=== PATIENT | male | born 1975 | race Caucasian/White ===

== ENCOUNTER 2024-12-22 03:28 | Emergency (ER) | payer BC, SELFPAY ==
[2024-12-22 03:32] VITALS: BP 144/86
--- NOTE | 2024-12-22 03:50 | EDRN ---
Orders placed in triage, informed nothing was collected.
[2024-12-22 03:53] VITALS: BMI 35.3
--- NOTE | 2024-12-22 03:54 | EDRN ---
Pt having 'extreme' pain R middle abdomen, was painful enough for pt to wake his to come here. Pt thought he had to go to the bathroom or had gas pains. Pain was persistent for 40 minutes and now is not 'as harsh, still painful.' Last BM
1999 and was normal. Pt passed gas earlier last night, not currently. Pt can feel pain in R back. Nausea, no vomiting. No fever/chills/cough, cp, sob, urinary symptoms, diarrhea/constipation. Pain waxes and wanes. Pt did not take anything for
the pain.
--- NOTE | 2024-12-22 04:05 | EDRN ---
Pt says pain woke him around [id number].
[2024-12-22 04:10] LABS: % Basophils 0.4 % (0-2); % Eosinophils 2.5 % (0-6); % Immature Granulocytes 0.4 % (0-0.5); % Lymphocytes 28.4 % (20.5-51.1); % Monocytes 8.7 % (1.7-9.3); % Neutrophils 59.6 % (42.2-75.2); Absolute Eosinophils 0.1 10^3/uL (0-0.7); Absolute Lymphocytes 1.5 10^3/uL (1.2-3.4); Absolute Monocytes 0.5 10^3/uL (0.1-0.6); Absolute Neutrophils 3.1 10^3/uL (1.4-6.5); Hematocrit 45.5 % (39.0-52.0); Hemoglobin 16.4 g/dL (13.0-18.0); Mean Corpuscular Hgb 30.3 pg (27.0-31.0); Mean Corpuscular Volume 84.1 fL (80.0-94.0); Mean Platelet Volume 8.4 fL (7.4-10.4); Nucleated Red Blood Cells % 0 % (-); Platelet Count 216 10^3/uL (130-400); Red Blood Cell Count 5.41 10^6/uL (4.70-6.10); White Blood Cell Count 5.2 10^3/uL (4.8-10.8)
[2024-12-22 04:11] VITALS: BP 128/83
[2024-12-22 04:24] LABS: Urine Albumin 2+ (Neg - Trace); Urine Bilirubin Negative (Negative); Urine Character Slightly Cloudy (Clear); Urine Color Yellow; Urine Glucose Negative (Negative); Urine Ketone Negative (Negative); Urine Leukocyte Negative (Negative); Urine Nitrite Negative (Negative); Urine Occult Blood 4+ (Negative); Urine Specific Gravity 1.025 (<1.030); Urine Urobilinogen Negative (Neg - 1+)
[2024-12-22 04:29] LABS: ALT (SGPT) 54 U/L (0-50); AST (SGOT) 33 U/L (17-59); Albumin 4.1 g/dl (3.5-5.0); Alkaline Phosphatase 76 U/L (38-126); Blood Urea Nitrogen 18 mg/dl (9-20); Calcium 9.1 mg/dl (8.4-10.2); Carbon Dioxide 25 mmol/L (22-30); Chloride 107 mmol/L (98-107); Estimated Creatinine Clearance 103 ml/min; Glucose 104 mg/dl (70-99); Lipase 91 U/L (23-300); Potassium 3.6 mmol/L (3.5-5.1); Sodium 140 mmol/L (135-145); Total Protein 6.7 g/dl (6.3-8.2); eGFR > 60.00
[2024-12-22 04:51] LABS: Urine Squamous Cell 0-2 /LPF (Few)
[2024-12-22 04:52] LABS: Urine Bacteria Few (Negative); Urine Red Blood Cell >100 /HPF (0-2); Urine White Cell None Seen /HPF (0-5)
[2024-12-22 04:53] LABS: Urine Mucus Few
[2024-12-22 05:30] VITALS: BP 108/72
--- NOTE | 2024-12-22 05:30 | ED.GENMED ---
History of Present Illness
General
Chief Complaint: Abdominal Pain
Source: patient
Exam Limitations: none
Time Seen by Provider: 12/22/24 04:37
History of Present Illness
History of Present Illness:
This a 49-year-old male presents with pain in the right abdomen rating toward the back. Started around 2:30 AM. States he thought he had a bath but that did not help. Pain was more severe and is now subsided a bit. Patient states that he was
nauseous. Pain was waxing and waning. His pain is mild at this point. No vomiting. No fevers. No injury. No testicular pain. No dysuria. No hematuria.
Past History
Past History
ED Past Medical History: Other (Ulcerative colitis, psoriasis)
ED Past Surgical History: None
Social History
Tobacco: Non-smoker
Alcohol: None
Personal:
Living: with family
Phy Exam
Physical Exam
Physical Exam:
CONSTITUTIONAL Patient alert and oriented to person, place and time. Well-appearing. Vital signs reviewed.
HEAD atraumatic, normocephalic.
EYES eyelids normal to inspection, Extraocular muscles intact, Conjunctiva normal, Sclera normal.
NECK normal range of motion, Trachea midline, no jugular venous distention.
RESPIRATORY CHEST No respiratory distress noted, Chest expansion equal, Bilateral breath sounds clear.
CARDIOVASCULAR regular rate and rhythm, Heart sounds normal.
ABDOMEN abdomen nontender, Bowel sounds normal. No distention. No CVA tenderness
BACK normal inspection, no obvious deformities
UPPER EXTREMITY range of motion normal, Motor strength normal, no cyanosis, no edema.
LOWER EXTREMITY range of motion normal, Motor strength normal, no cyanosis, no edema.
NEURO Speech normal, No focal motor deficits, [place] coma scale 15, Memory normal, Cranial Nerves intact to screening exam.
SKIN skin warm, dry, and normal in color.
Course
Orders/Labs/Results
Orders:
Orders
12/22/24 03:58
CBC/With Diff [Complete Blood Count/With Diff] Urgent
Comprehensive Metabolic Panel Urgent
Lipase Urgent
12/22/24 04:06
Urinalysis Urgent
Date Specimen was Collected: 12/22/24
Time Specimen was Collected: 03:35
Urine Microscopic Urgent
Date Specimen was Collected: 12/22/24
Time Specimen was Collected: 03:35
12/22/24 04:29
CT Abd/pel Without Iv Or Oral Urgent
Comment:
Reason For Exam: R flank pain
12/22/24 05:26
Ketorolac [Toradol] 15 mg IV NOW STA
Abnormal Lab Results
12/22/24 12/22/24
03:58 04:06
Glucose 104 H mg/dl
(70-99)
ALT 54 H U/L
(0-50)
Urine Occult Blood 4+ A
(Negative)
Urine RBC >100 A /HPF
(0-2)
Urine Bacteria Few A
(Negative)
Urine Albumin 2+ A
(Neg - Trace)
12/22/24 03:58
12/22/24 03:58
Vital Signs
Initial and Last Documented VS:
Initial Vital Signs
Temp Pulse Resp BP Pulse Ox
98.3 F 84 20 144/86 98
12/22/24 03:32 12/22/24 03:32 12/22/24 03:32 12/22/24 03:32 12/22/24 03:32
Last Documented Vital Signs
Temp Pulse Resp BP Pulse Ox
98.3 F 76 16 128/83 94
12/22/24 03:32 12/22/24 04:11 12/22/24 04:11 12/22/24 04:11 12/22/24 04:11
MDM/Problems Addressed
MDM/Problems Addressed:
Acute ureterolithiasis
*Radiology
Radiology exam reviewed: preliminary read by ED provider (Right-sided ureterolithiasis)
*Pulse Oximetry
Patient hypoxic: no
*Size Painter Interpretation
Rate: normal
Interpretation: normal
Rhythm: sinus
*Critical Care Note
Total Time (30-74mins, 75-104mins- exclusive of procedures): Not Applicable
Data Reviewed
Source: patient
Prescriptions/Medications Considered But Not Given:
Considered antibiotics but no leukocytosis, urinalysis negative for infection
Patient Management
Escalation/DeEscalation of care consider admission/obs:
Pain control. Patient appears quite well. Stable for outpatient management. Outpatient follow-up with urology
ED Attending Note
-
Portions of this chart may have been created with voice recognition software.� Occasional wrong word or��sound alike� substitutions may have occurred due to the inherent limitations of voice recognition software.
Discharge Plan
Departure
Patient Disposition: Home (Routine Discharge)
Date of Disposition: 12/22/24
Time of Disposition: 05:32
Patient with high blood pressure during this ER visit?: No
Discharge Problem:
Ureterolithiasis
Instructions: Kidney Stones (DC), Narcotic Pain Medication
Prescriptions:
New
hydrocodone-acetaminophen 5-325 mg tablet
2 tab PO Q6H PRN (Reason: Pain) Qty: 20 0RF
tamsulosin [Flomax] 0.4 mg capsule
0.4 mg PO HS Qty: 20 0RF
Referrals:
Kyle Tamez MD [Active] -
UNKNOWN - PT DOES,NOT KNOW [Family Provider] -
Activity Restrictions/Additional Instructions:
Please see urology in follow-up in the next 3 to 5 days. Return immediately for worsening symptoms, intractable vomiting, intractable pain, fevers or any other concerns. Please drink plenty of fluids and strain your urine as discussed.
Interventions
Interventions:
*Risk Screen - Suicide Last Done: 12/22/24 03:30
*General Assessment Last Done: 12/22/24 03:53
*Neglect/Abuse Screening Last Done: 12/22/24 03:30
*ED- Fall Risk Assessment Last Done: 12/22/24 05:30
*ED COVID-19 Vaccine History Last Done: 12/22/24 03:53
FV-Pztkzd-Tmwlocpxbr Assessment Last Done: 12/22/24 04:09
ED-Male Genitourinary Assessment Last Done: 12/22/24 04:09
Discharge Date and Time
Print Language: SLOVENIAN
[2024-12-22] MEDS: TORADOL 15 MG IV (05:31)
== END 2024-12-22 06:00 | disposition home or self-care (01) ==
LOC: EMR 03:28
PROVIDERS: EMERGENCY PHYSICIAN Emergency Medicine
DX: N20.1 Calculus of ureter (principal); R11.0 Nausea; K51.90 Ulcerative colitis, unspecified, without complications; L40.9 Psoriasis, unspecified
CPT/HCPCS: 99284; 96374; 74176; 80053; 81003; 81015; 83690; 85025

== ENCOUNTER 2024-12-31 14:59 | Emergency (ER) | payer BC, SELFPAY ==
[2024-12-31 14:59] VITALS: BMI 35.2
[2024-12-31 15:02] VITALS: BP 149/98
--- NOTE | 2024-12-31 15:39 | ED.GENMED ---
History of Present Illness
General
Chief Complaint: Flank Pain
Source: patient and records (ED visit 12/22/24 for kidney stone)
Exam Limitations: none
Time Seen by Provider: 12/31/24 15:29
Nursing documentation reviewed up to this point in time: agreed with
History of Present Illness
History of Present Illness:
49-year-old male presents emergency room complaining of right flank pain that first began on 12/22/2024, when he was advised in the emergency department and had a 4 mm stone at the right UPJ. He was instructed to follow-up with Dr. Tamez. When
his pain came back today, he called Dr. Tamez's office and was directed to the emergency department.
Past History
Past History
ED Past Medical History: Other (Ulcerative colitis, psoriasis) and Other (Kidney stone)
ED Past Surgical History: None
Social History
Tobacco: Non-smoker
Alcohol: None
Personal:
Living: with family
Review of Systems
Review of Systems
Allergies reviewed?: Yes
All Other Systems: Not applicable
Constitutional: Reports no symptoms
EENT: Reports no symptoms
Respiratory: Reports no symptoms
Cardiac: Reports no symptoms
ABD/GI: Reports no symptoms
: Reports flank pain
Musculoskeletal: Reports no symptoms
Skin: Reports no symptoms
Neurological: Reports no symptoms
Endocrine: Reports no symptoms
Hematologic/Lymphatic: Reports no symptoms
Psychiatric: Reports no symptoms
Phy Exam
Physical Exam
Physical Exam:
Physical Exam
General: no apparent distress, not acutely ill
Neck: supple. no meningeal signs. normal posterior pharynx
Heart: s1/s2 regular rate and rhythm, no murmur. equal radial
pulses.
HEENT: Pupils equal round reactive to light, EOMI
Lungs: no acute respiratory distress. clear bilaterally
Abdomen: normal bowel sounds. not tender. no CVAT
Neuro: alert and oriented. no focal neurological deficits cranial nerves II through XII intact
Skin: no rash
Psychiatric: well kept. interactive and cooperative
Extremities: no edema. no calf tenderness. negative homans. good distal pulses
Course
Orders/Labs/Results
Orders:
Orders
12/31/24 15:37
IV Insert/Care/Rem.- Treatment PRN
Ketorolac [Toradol] 15 mg IV NOW STA
12/31/24 15:38
Abdomen Xray - 1 View [CR Abdomen - 1 View] Urgent
Comment:
Reason For Exam: right flank pain, know kidney stone
12/31/24 15:57
Complete Blood Count/With Diff Urgent
Comprehensive Metabolic Panel Urgent
Urinalysis Reflex To Culture Urgent
Date Specimen was Collected: 12/31/24
Time Specimen was Collected: 15:47
Urine Microscopic Reflex Cult Urgent
Abnormal Lab Results
12/31/24
15:57
WBC 12.8 H 10^3/uL
(4.8-10.8)
Abs Immat Gran (auto) 0.1 H 10^3/uL
(0-0.05)
Absolute Neuts (auto) 11.1 H 10^3/uL
(1.4-6.5)
Absolute Lymphs (auto) 0.9 L 10^3/uL
(1.2-3.4)
Absolute Monos (auto) 0.7 H 10^3/uL
(0.1-0.6)
Neutrophils % 86.7 H %
(42.2-75.2)
Lymphocytes % 7.2 L %
(20.5-51.1)
Glucose 131 H mg/dl
(70-99)
ALT 60 H U/L
(0-50)
Ur Occult Blood Reflex 2+ A
(Negative)
Urine RBC 3-6 A /HPF
(0-2)
Urine Bacteria (Reflex) Few A
(Negative)
Urine Albumin (Reflex) 1+ A
(Neg - Trace)
12/31/24 15:57
12/31/24 15:57
Vital Signs
Initial and Last Documented VS:
Initial Vital Signs
Temp Pulse Resp BP Pulse Ox
98.2 F 101 19 149/98 98
12/31/24 15:02 12/31/24 15:02 12/31/24 15:02 12/31/24 15:02 12/31/24 15:02
Last Documented Vital Signs
Temp Pulse Resp BP Pulse Ox
98.2 F 101 16 149/98 98
12/31/24 15:02 12/31/24 15:02 12/31/24 16:00 12/31/24 15:02 12/31/24 15:02
*Radiology
Radiology exam reviewed: preliminary read by ED provider (Abdominal x-ray shows calculus in right abdomen) and radiology read reviewed (Abdominal x-ray shows calculus in right lower abdomen, likely progressed prior stone)
*Pulse Oximetry
Patient hypoxic: no
*Critical Care Note
Total Time (30-74mins, 75-104mins- exclusive of procedures): Not Applicable
Data Reviewed
Review of Other/Old Records Reveals: Radiology Studies (CT abdomen pelvis shows 4 mm stone at right UPJ on 12/22/2024)
Source: records
Patient Management
Social determinants of health affecting care: Living situation and Strong social support
Escalation/DeEscalation of care consider admission/obs:
Admit not indicated
ED Attending Note
-
Portions of this chart may have been created with voice recognition software.� Occasional wrong word or��sound alike� substitutions may have occurred due to the inherent limitations of voice recognition software.
Discharge Plan
Departure
Patient Disposition: Home (Routine Discharge)
Date of Disposition: 12/31/24
Time of Disposition: 17:26
Patient with high blood pressure during this ER visit?: Yes
Condition: Good
Discharge Problem:
Calculus of distal right ureter
Instructions: Kidney Stones (DC), How to Strain Your Urine, BLOOD PRESSURE
Prescriptions:
No Action
hydrocodone-acetaminophen 5-325 mg tablet
2 tab PO Q6H PRN (Reason: Pain) Qty: 20 0RF
tamsulosin [Flomax] 0.4 mg capsule
0.4 mg PO HS Qty: 20 0RF
Referrals:
Kyle Tamez MD [Active] - Call in 1-3 days for appt
NONE,* [Family Provider] -
Interventions
Interventions:
*Risk Screen - Suicide Last Done: 12/31/24 15:02
*General Assessment Last Done: 12/31/24 15:02
*Neglect/Abuse Screening Last Done: 12/31/24 15:02
*ED- Fall Risk Assessment Last Done: 12/31/24 15:32
MX-Alupxy-Oziweamney Assessment Last Done: 12/31/24 15:32
ED-Male Genitourinary Assessment Last Done: 12/31/24 15:32
Discharge Date and Time
Print Language: GREEK
[2024-12-31] MEDS: TORADOL 15 MG IV (15:57)
[2024-12-31 16:11] LABS: Urine Albumin 1+ (Neg - Trace); Urine Bilirubin Negative (Negative); Urine Character Clear (Clear); Urine Color Yellow; Urine Glucose Negative (Negative); Urine Ketone Negative (Negative); Urine Leukocyte Negative (Negative); Urine Nitrite Negative (Negative); Urine Occult Blood 2+ (Negative); Urine Specific Gravity 1.025 (<1.030); Urine Urobilinogen Negative (Neg - 1+)
[2024-12-31 16:18] LABS: % Basophils 0.2 % (0-2); % Eosinophils 0.2 % (0-6); % Immature Granulocytes 0.4 % (0-0.5); % Lymphocytes 7.2 % (20.5-51.1); % Monocytes 5.3 % (1.7-9.3); % Neutrophils 86.7 % (42.2-75.2); Absolute Immature Granulocytes 0.1 10^3/uL (0-0.05); Absolute Lymphocytes 0.9 10^3/uL (1.2-3.4); Absolute Monocytes 0.7 10^3/uL (0.1-0.6); Absolute Neutrophils 11.1 10^3/uL (1.4-6.5); Hematocrit 46.6 % (39.0-52.0); Hemoglobin 16.8 g/dL (13.0-18.0); Mean Corp Hgb Conc. 36.1 g/dL (33.0-37.0); Mean Corpuscular Hgb 30.2 pg (27.0-31.0); Mean Corpuscular Volume 83.7 fL (80.0-94.0); Mean Platelet Volume 8.5 fL (7.4-10.4); Nucleated Red Blood Cells % 0 % (-); Platelet Count 238 10^3/uL (130-400); Red Blood Cell Count 5.57 10^6/uL (4.70-6.10); Red Cell Dist. Width 12.7 % (11.5-14.5); White Blood Cell Count 12.8 10^3/uL (4.8-10.8)
[2024-12-31 16:20] LABS: Urine Mucus Few; Urine Squamous Cell 0-2 /LPF (Few)
[2024-12-31 16:21] LABS: Urine Bacteria Few (Negative); Urine White Cell 0-2 /HPF (0-5)
[2024-12-31 16:23] LABS: ALT (SGPT) 60 U/L (0-50); AST (SGOT) 36 U/L (17-59); Albumin 4.5 g/dl (3.5-5.0); Alkaline Phosphatase 85 U/L (38-126); Blood Urea Nitrogen 18 mg/dl (9-20); Calcium 9.2 mg/dl (8.4-10.2); Carbon Dioxide 27 mmol/L (22-30); Chloride 104 mmol/L (98-107); Estimated Creatinine Clearance 79 ml/min; Glucose 131 mg/dl (70-99); Potassium 4.3 mmol/L (3.5-5.1); Sodium 139 mmol/L (135-145); Total Protein 7.3 g/dl (6.3-8.2); eGFR > 60.00
[2024-12-31 17:39] VITALS: BP 124/74
== END 2024-12-31 17:39 | disposition home or self-care (01) ==
LOC: EMR 14:59
PROVIDERS: EMERGENCY PHYSICIAN Emergency Medicine
DX: N20.2 Calculus of kidney with calculus of ureter (principal); R03.0 Elevated blood-pressure reading, without diagnosis of hypertension; Z87.442 Personal history of urinary calculi
CPT/HCPCS: 99284; 96374; 74018; 80053; 81003; 81015; 85025

== ENCOUNTER → 2025-01-21 11:46 | Outpatient (REF) | payer BC, SELFPAY | LOC: RAD 11:46 | PROVIDERS: ATTENDING PHYSICIAN Nurse Practitioner Family; FAMILY PHYSICIAN Physician Assistant Medical | DX: M79.652 Pain in left thigh (principal) | CPT/HCPCS: 73502 ==

== ENCOUNTER → 2025-03-30 07:40 | Outpatient (REF) | payer BC, SELFPAY | LOC: RAD 07:40 | PROVIDERS: ATTENDING PHYSICIAN Specialist | DX: N20.1 Calculus of ureter (principal) | CPT/HCPCS: 74018 ==